=== PATIENT | male | born 1945 | race Caucasian/White ===

== ENCOUNTER 2022-12-10 14:50 | Inpatient (IN) | payer OTHER ==
[~2022-12-10] VITALS: Ht 167.6 cm; Wt 56.3 kg
[2022-12-10 16:43] LABS: BASOPHILS ABSOLUTE AUTO 0.05 K/mm3 (0.00-0.23); BASOPHILS PERCENT AUTO 1 % (0-2); EOSINOPHILS ABSOLUTE AUTO 0.01 K/mm3 (0.00-0.68); EOSINOPHILS PERCENT AUTO 0 % (0-6); Hematocrit 35.6 % (37.0-53.0); Hemoglobin 12.3 g/dL (13.5-17.5); IMMATURE GRAN ABSOLUTE AUTO 0.02 K/mm3 (0.00-0.10); IMMATURE GRAN PERCENT AUTO 0 % (0-1); LYMPHOCYTES PERCENT AUTO 28 % (21-46); MONOCYTES ABSOLUTE AUTO 0.94 K/mm3 (0.16-1.47); MONOCYTES PERCENT AUTO 15 % (4-13); Mean Corpuscular HGB 33.7 pg (26.0-34.0); Mean Corpuscular HGB Conc 34.6 g/dL (31.5-36.5); Mean Corpuscular Volume 98 fL (80-100); Mean Platelet Volume 10.2 fL (9.1-12.4); NEUTROPHILS ABSOLUTE AUTO 3.65 K/mm3 (1.96-9.15); NEUTROPHILS PERCENT AUTO 56 % (41-73); NRBC ABSOLUTE 0.02 K/mm3 (0.00-0.02); NRBC Auto 0.3 /100 WBC (0.0-0.2); Platelet Count 298 K/mm3 (150-400); RDW Coefficient Variation 12.4 % (11.7-14.2); RDW Standard Deviation 44.4 fL (35.1-46.3); Red Blood Cell Count 3.65 M/mm3 (4.30-5.90); White Blood Cell Count 6.47 K/mm3 (4.00-11.30)
[2022-12-10 16:59] LABS: Albumin, Blood 3.8 g/dL (3.4-5.0); Bilirubin, Total 1.6 mg/dL (0.1-1.0); Bun/Creatinine Ratio 36.7 (12.0-20.0); Calcium, Blood 9.9 mg/dL (8.5-10.1); Creatinine, Blood 0.63 mg/dL (0.60-1.20); Globulin, Blood 3.8 g/dL (2.2-4.0); Potassium, Blood 3.2 mmol/L (3.5-5.5); Total Protein, Blood 7.6 g/dL (6.4-8.2)
[2022-12-10] MEDS ORDERED: Aspir 8181 MG PO (22:53)
[2022-12-10 23:59] LABS: Thyroid Stimulating Hormone 0.048 uIU/mL (0.360-4.800)
--- NOTE | 2022-12-11 02:00 | NUR ---
TRANSFER NOTE THIS RN RECEIVED REPORT VIA TELEPHONE FROM MAGED RN FROM THE ED. PATIENT TO ROOM AT 2333. PATIENT ALERT AND ORIENTED X4 BUT OCCASIONALLY APPEARS TO BE CONFUSED ABOUT CARE AND CONVERSATION DESPITE ANSWERING QUESTIONS APPROPRIATELY. CARDIZEM GTT INFUSING AT 10. BP STABLE. AFIB WITH HR 90-100'S AT THIS TIME. PATIENT REPORTS PAIN IN THE MID EPIGASTRIC AREA THAT RADIATES TO CHEST. MEDICATING PER EMAR FOR PAIN. PATIENT DENIES DRINKING ALCOHOL AND REPORTS ONLY OCCASIONALLY HAVING 1 BEER SOCIALLY AND HIS LAST DRINK BEING IN MID OCTOBER. BED ALARM ON. BED IN LOWEST POSITION AND CALL LIGHT WITHIN REACH.
[2022-12-11 02:26] LABS: BASOPHILS ABSOLUTE AUTO 0.04 K/mm3 (0.00-0.23); BASOPHILS PERCENT AUTO 1 % (0-2); EOSINOPHILS ABSOLUTE AUTO 0.04 K/mm3 (0.00-0.68); EOSINOPHILS PERCENT AUTO 1 % (0-6); Hemoglobin 11.6 g/dL (13.5-17.5); IMMATURE GRAN ABSOLUTE AUTO 0.02 K/mm3 (0.00-0.10); IMMATURE GRAN PERCENT AUTO 0 % (0-1); LYMPHOCYTES PERCENT AUTO 33 % (21-46); MONOCYTES ABSOLUTE AUTO 0.99 K/mm3 (0.16-1.47); MONOCYTES PERCENT AUTO 14 % (4-13); Mean Corpuscular HGB Conc 35.2 g/dL (31.5-36.5); Mean Corpuscular Volume 97 fL (80-100); Mean Platelet Volume 9.3 fL (9.1-12.4); NEUTROPHILS ABSOLUTE AUTO 3.57 K/mm3 (1.96-9.15); NEUTROPHILS PERCENT AUTO 51 % (41-73); NRBC ABSOLUTE 0.02 K/mm3 (0.00-0.02); NRBC Auto 0.3 /100 WBC (0.0-0.2); Platelet Count 242 K/mm3 (150-400); RDW Coefficient Variation 12.3 % (11.7-14.2); RDW Standard Deviation 43.8 fL (35.1-46.3); Red Blood Cell Count 3.41 M/mm3 (4.30-5.90); White Blood Cell Count 6.96 K/mm3 (4.00-11.30)
[2022-12-11 02:47] LABS: Alanine Aminotransfer (ALT/SGP 31 U/L (12-78); Albumin, Blood 3.4 g/dL (3.4-5.0); Alk Phos 66 U/L (50-136); Anion Gap 4 mmol/L (6-16); Aspartate Aminotrans (AST/SGOT 28 U/L (12-37); Bilirubin, Total 1.8 mg/dL (0.1-1.0); Blood Urea Nitrogen 21 mg/dL (8-24); Bun/Creatinine Ratio 32.6 (12.0-20.0); CHOL/HDL RATIO 2.1; CO2, Blood 31 mmol/L (21-32); Calcium, Blood 9.4 mg/dL (8.5-10.1); Chloride, Blood 103 mmol/L (98-108); Cholesterol 62 mg/dL (50-200); Creatinine, Blood 0.64 mg/dL (0.60-1.20); Globulin, Blood 3.3 g/dL (2.2-4.0); Glomerular Filtration Rate 99 (60-); Glucose, Blood 134 mg/dL (70-99); HDL Cholesterol 29 mg/dL (>39); LDL/HDL RATIO 0.6; Low Density Lipoprotein Chol 16 mg/dL (0-110); Potassium, Blood 3.8 mmol/L (3.5-5.5); Sodium, Blood 138 mmol/L (136-145); Total Protein, Blood 6.7 g/dL (6.4-8.2); Triglycerides 83 mg/dL (30-160); Very Low Density Lipoprot Chol 16 mg/dL (6-32)
--- NOTE | 2022-12-11 05:15 | NUR ---
SHIFT SUMMARY NO CHANGES TO NEURO SINCE PREVIOUS NOTE. SEE ASSESSMENT. PATIENT CONTINUES TO BE IN AFIB WITH HR 90'S ON DILT GTT OF 5MG/HR. INFUSING NS PER EMAR. BP STABLE. AFEBRILE. SPO2 >92% ON RA. CALLING APPROPRIATELY. NUNAKAUYARMIUT. CONTINUED COMPLAINTS OF ABDOMINAL PAIN; MEDICATING PER EMAR. BED IN LOWEST POSITION AND CALL LIGHT WITHIN REACH. THIS RN WILL CONTINUE TO MONITOR UNTIL SHIFT CHANGE AT 0700.
[2022-12-11 12:46] LABS: BASOPHILS ABSOLUTE AUTO 0.04 K/mm3 (0.00-0.23); BASOPHILS PERCENT AUTO 1 % (0-2); EOSINOPHILS ABSOLUTE AUTO 0.01 K/mm3 (0.00-0.68); EOSINOPHILS PERCENT AUTO 0 % (0-6); Hematocrit 31.6 % (37.0-53.0); Hemoglobin 10.7 g/dL (13.5-17.5); IMMATURE GRAN ABSOLUTE AUTO 0.02 K/mm3 (0.00-0.10); IMMATURE GRAN PERCENT AUTO 0 % (0-1); LYMPHOCYTES ABSOLUTE AUTO 1.54 K/mm3 (0.84-5.20); LYMPHOCYTES PERCENT AUTO 29 % (21-46); MONOCYTES ABSOLUTE AUTO 0.73 K/mm3 (0.16-1.47); MONOCYTES PERCENT AUTO 14 % (4-13); Mean Corpuscular HGB 33.8 pg (26.0-34.0); Mean Corpuscular HGB Conc 33.9 g/dL (31.5-36.5); Mean Corpuscular Volume 100 fL (80-100); Mean Platelet Volume 9.9 fL (9.1-12.4); NEUTROPHILS ABSOLUTE AUTO 2.97 K/mm3 (1.96-9.15); NEUTROPHILS PERCENT AUTO 56 % (41-73); Platelet Count 238 K/mm3 (150-400); RDW Coefficient Variation 12.3 % (11.7-14.2); RDW Standard Deviation 44.5 fL (35.1-46.3); Red Blood Cell Count 3.17 M/mm3 (4.30-5.90); White Blood Cell Count 5.31 K/mm3 (4.00-11.30)
[2022-12-11 13:00] LABS: International Normalized Ratio 1.16; Prothrombin Time Results 12.1 Sec (9.7-11.5)
[2022-12-11 13:05] LABS: Creatinine, Blood 0.61 mg/dL (0.60-1.20); Potassium, Blood 3.9 mmol/L (3.5-5.5)
--- NOTE | 2022-12-11 18:37 | NUR ---
SHIFT SUMMARY; ASSUMED CARE AT 0700, A/A/OX4, TLINGIT & HAIDA. NS INFUSING AT 100ML/HR. NPO PER ORDERS. EVALUATED TODAY BY SURGERY FOR POSSIBLE GALLBLADDER REMOVAL. ICE CHIPS GIVEN PER OK FROM DR. LEMUS. USES URINAL AT BEDSIDE, REPOSITIONS SELF NEEDED. PO CARDIZEM STARTED TODAY, CARDIZEM IV DC'D AT 1400. REMAINS IN AFIB WITH RATE 70-90, DENIES CP OR SOB. ABD SOFT BUT REMAINS TENDER BILATERALLY. WILL CONTINUE TO MONITOR AND TREAT UNTIL CHANGE OF SHIFT.
[2022-12-11 20:06] LABS: Source, Urine Clean Catch
[2022-12-11 20:19] LABS: Appearance, Urine Clear (Clear); Bilirubin, Urine Neg (Neg); Blood, Urine 3+ (Neg); Color, Urine Yellow (P-Yellow); Glucose Qualitative, Urine Neg (Neg); Ketones, Urine Neg (Neg); Leukocyte Esterase, Urine 3+ (Neg); Nitrite, Urine Pos (Neg); Protein, Urine 3+ (Neg); Specific Gravity, Urine 1.015 (1.003-1.022); Urobilinogen, Urine NORM (Normal)
[2022-12-11 20:39] LABS: Amorphous Mod (0-Heavy); Bacteria Mod /hpf; Squamous Epithelial Cells Mod /hpf (Few); White Blood Cells, Urine 0-2 /hpf (0-5)
--- NOTE | 2022-12-12 06:05 | NUR ---
SHIFT SUMMARY ASSUMED CARE OF PT AT 1900. PT IS A/OX4 BUT ODD. LUNG SOUNDS CLEAR. HEART SOUNDS IRREGULAR. PT WAS IN AFLUTTER AND THEN A 2ND DEGREE BLOCK PER TELE. PT USED URINAL DURING THE NIGHT. PT IS A SBA WITH LINES. AT 0400 PT REQUESTED HELP WITH HIS IV AND FOR ICE CHIPS. PT WAS ASSISTED AND THE ELECTRIC WELL LOGGING OPERATOR BROUGHT ICECHIPS BUT SET THEM ON THE TABLE ON THE OTHER SIDE OF THE BED. PT GOT UP TO WALK AROUND THE BED AND FELL DUE TO WEAKNESS, DESPITE BEING TOLD TO CALL FOR ASSISTANCE WHICH HE HAD DONE PREVIOUSLY IN THE SHIFT. PT STATED HE DID NOT HIT HIS HEAD BUT TOOK MOST OF THE FALL WITH HIS L ELBOW WHICH HAS A SMALL SKIN TEAR. VITAL SIGNS STABLE, HOSPITALIST MADE AWARE, BED ALARM ON.
[2022-12-12 11:32] LABS: BASOPHILS ABSOLUTE AUTO 0.04 K/mm3 (0.00-0.23); BASOPHILS PERCENT AUTO 1 % (0-2); EOSINOPHILS ABSOLUTE AUTO 0.02 K/mm3 (0.00-0.68); EOSINOPHILS PERCENT AUTO 0 % (0-6); Hematocrit 33.5 % (37.0-53.0); Hemoglobin 11.6 g/dL (13.5-17.5); IMMATURE GRAN ABSOLUTE AUTO 0.03 K/mm3 (0.00-0.10); IMMATURE GRAN PERCENT AUTO 1 % (0-1); LYMPHOCYTES ABSOLUTE AUTO 1.07 K/mm3 (0.84-5.20); LYMPHOCYTES PERCENT AUTO 19 % (21-46); MONOCYTES ABSOLUTE AUTO 0.58 K/mm3 (0.16-1.47); MONOCYTES PERCENT AUTO 10 % (4-13); Mean Corpuscular HGB 33.5 pg (26.0-34.0); Mean Corpuscular HGB Conc 34.6 g/dL (31.5-36.5); Mean Corpuscular Volume 97 fL (80-100); Mean Platelet Volume 10.1 fL (9.1-12.4); NEUTROPHILS ABSOLUTE AUTO 4.01 K/mm3 (1.96-9.15); NEUTROPHILS PERCENT AUTO 70 % (41-73); Platelet Count 241 K/mm3 (150-400); RDW Coefficient Variation 12.4 % (11.7-14.2); RDW Standard Deviation 43.9 fL (35.1-46.3); Red Blood Cell Count 3.46 M/mm3 (4.30-5.90); White Blood Cell Count 5.75 K/mm3 (4.00-11.30)
[2022-12-12 11:50] LABS: Albumin, Blood 3.3 g/dL (3.4-5.0); Bilirubin, Total 3.1 mg/dL (0.1-1.0); Calcium, Blood 8.8 mg/dL (8.5-10.1); Creatinine, Blood 0.5 mg/dL (0.60-1.20); Globulin, Blood 3.3 g/dL (2.2-4.0); Potassium, Blood 3.5 mmol/L (3.5-5.5); Total Protein, Blood 6.6 g/dL (6.4-8.2)
--- NOTE | 2022-12-12 18:21 | NUR ---
SHIFT SUMMARY; ASSUMED CARE AT 0700. A/A/OX4, FALSE PASS. REPORTS INCREASING ABD PAIN TODAY, BT'S IN ALL QUADS, TENDER IN MID ABDOMEN. SCD'S BILATERALLY, NS INFUSING AT 100ML/HR. AWAITING MRI. NS AT 100ML/HR. CLEAR LIQUID DIET STARTED IN PM BY DR. WEST. PAIN MEDS PER EMAR. HR ST WITH PVC'S RATE 80-100. DENIES SO OR CHEST PAIN. ASSISTED WITH REPOSITIONING SEVERAL TIMES DURING SHIFT. PT STATES HE'S FEELING WEAK AND FELL LAST NOC. WILL CONTINUE TO MONITOR AND TREAT UNTIL CHANGE OF SHIFT.
--- NOTE | 2022-12-12 23:56 | NUR ---
CARE UPDATE PT IN NO APPARENT DISTRESS, CONTINUOUS TELEMETRY, HR 100'S-110'S. PT MEDICATED PER ORDERS. STATES PAIN IS NEARLY COMPLETELY GONE AT THIS TIME. AOX4. DENIES ANY OTHER NEEDS AT THIS TIME. SCDS IN PLACE AND ON. CALL LIGHT WITHIN REACH. PT USING CELL PHONE.
[2022-12-13 04:59] LABS: BASOPHILS ABSOLUTE AUTO 0.05 K/mm3 (0.00-0.23); BASOPHILS PERCENT AUTO 1 % (0-2); EOSINOPHILS ABSOLUTE AUTO 0.09 K/mm3 (0.00-0.68); EOSINOPHILS PERCENT AUTO 1 % (0-6); Hematocrit 32.6 % (37.0-53.0); Hemoglobin 11.4 g/dL (13.5-17.5); IMMATURE GRAN ABSOLUTE AUTO 0.03 K/mm3 (0.00-0.10); IMMATURE GRAN PERCENT AUTO 0 % (0-1); LYMPHOCYTES PERCENT AUTO 24 % (21-46); MONOCYTES PERCENT AUTO 12 % (4-13); Mean Corpuscular HGB 33.8 pg (26.0-34.0); Mean Corpuscular Volume 97 fL (80-100); Mean Platelet Volume 9.9 fL (9.1-12.4); NEUTROPHILS ABSOLUTE AUTO 4.13 K/mm3 (1.96-9.15); NEUTROPHILS PERCENT AUTO 62 % (41-73); Platelet Count 234 K/mm3 (150-400); RDW Coefficient Variation 12.2 % (11.7-14.2); RDW Standard Deviation 43.2 fL (35.1-46.3); Red Blood Cell Count 3.37 M/mm3 (4.30-5.90)
[2022-12-13 06:02] LABS: Albumin/Globulin Ratio 0.9 (0.8-1.8); Bilirubin, Total 2.4 mg/dL (0.1-1.0); Calcium, Blood 8.6 mg/dL (8.5-10.1); Creatinine, Blood 0.48 mg/dL (0.60-1.20); Globulin, Blood 3.3 g/dL (2.2-4.0); Potassium, Blood 2.9 mmol/L (3.5-5.5); Total Protein, Blood 6.3 g/dL (6.4-8.2)
--- NOTE | 2022-12-13 06:06 | NUR ---
SHIFT SUMMARY ASSUMED CARE OF PT AT 1900. PT IS A/OX4. HEART SOUNDS REGULAR, LUNG SOUNDS CLEAR. PT WAS PAINFUL THIS SHIFT. MEDICATED PER EMAR. PT SLEPT MOST OF THE NIGHT. USED THE URINAL. NO ACUTE CHANGES.
--- NOTE | 2022-12-13 06:44 | NUR ---
CALL TO PROVIDER THIS RN CALLS DR CABRERA TO NOTIFY OF POTASSIUM LEVEL 2.9. PROVIDER ORDERS KCL IV 40 MEQ ONE TIME FOR NOW.
[2022-12-13 09:06] LABS: Magnesium, Blood 1.7 mg/dL (1.6-2.4); Phosphorus, Blood 3.6 mg/dL (2.5-4.9)
[2022-12-13 15:48] LABS: Anti-Xa UFH, PHA Monitoring <0.10 IU/mL; International Normalized Ratio 1.27; Prothrombin Time Results 13.1 Sec (9.7-11.5)
[2022-12-13 16:01] LABS: Albumin, Blood 2.9 g/dL (3.4-5.0); Anion Gap 8 mmol/L (6-16); Blood Urea Nitrogen 14 mg/dL (8-24); Bun/Creatinine Ratio 29.5 (12.0-20.0); CO2, Blood 25 mmol/L (21-32); Calcium, Blood 8.5 mg/dL (8.5-10.1); Chloride, Blood 104 mmol/L (98-108); Creatinine, Blood 0.48 mg/dL (0.60-1.20); Glomerular Filtration Rate 108 (60-); Glucose, Blood 217 mg/dL (70-99); Phosphorus, Blood 3.2 mg/dL (2.5-4.9); Potassium, Blood 3.1 mmol/L (3.5-5.5); Sodium, Blood 137 mmol/L (136-145)
--- NOTE | 2022-12-13 17:22 | NUR ---
Received pt at 1710. PT connected to a heparin drip 16.8 uts/per hour. Pt alertxorientedx3 and ambulatory. PT states he's [place] and just received pain medication before coming upstairs. PT is on tele resting comfortanly HR at 90. Pt has water and cell phone at bedside. All belongings with patient at bedside.
[2022-12-14] MEDS ORDERED: Norco 5-325 Ta1 EACH PO (02:06)
[2022-12-14] MEDS ORDERED: ATOR80 PO (02:06)
[2022-12-14] MEDS ORDERED: NALOXONE H0.4 MG/1 M IM (02:07)
[2022-12-14] MEDS ORDERED: CARBOXYMETHYLC1 EACH BOTHEYES (02:08)
[2022-12-14] MEDS ORDERED: THERA-D2000 UNIT PO (02:09)
[2022-12-14] MEDS ORDERED: STIOLTO RESPIMAT4 G1 INH (02:09)
[2022-12-14] MEDS ORDERED: METHIMAZOLE5 M1 PO (02:10)
--- NOTE | 2022-12-14 03:26 | NUR ---
Patient resting in bed at tthis time.
[2022-12-14 06:18] LABS: BASOPHILS ABSOLUTE AUTO 0.05 K/mm3 (0.00-0.23); BASOPHILS PERCENT AUTO 1 % (0-2); EOSINOPHILS ABSOLUTE AUTO 0.09 K/mm3 (0.00-0.68); EOSINOPHILS PERCENT AUTO 1 % (0-6); Hematocrit 31.5 % (37.0-53.0); Hemoglobin 10.8 g/dL (13.5-17.5); IMMATURE GRAN ABSOLUTE AUTO 0.02 K/mm3 (0.00-0.10); IMMATURE GRAN PERCENT AUTO 0 % (0-1); LYMPHOCYTES ABSOLUTE AUTO 1.58 K/mm3 (0.84-5.20); LYMPHOCYTES PERCENT AUTO 22 % (21-46); MONOCYTES ABSOLUTE AUTO 0.79 K/mm3 (0.16-1.47); MONOCYTES PERCENT AUTO 11 % (4-13); Mean Corpuscular HGB 33.6 pg (26.0-34.0); Mean Corpuscular HGB Conc 34.3 g/dL (31.5-36.5); Mean Corpuscular Volume 98 fL (80-100); Mean Platelet Volume 9.7 fL (9.1-12.4); NEUTROPHILS ABSOLUTE AUTO 4.53 K/mm3 (1.96-9.15); NEUTROPHILS PERCENT AUTO 64 % (41-73); Platelet Count 224 K/mm3 (150-400); RDW Coefficient Variation 12.3 % (11.7-14.2); RDW Standard Deviation 44.1 fL (35.1-46.3); Red Blood Cell Count 3.21 M/mm3 (4.30-5.90); White Blood Cell Count 7.06 K/mm3 (4.00-11.30)
[2022-12-14 06:58] LABS: Albumin/Globulin Ratio 0.9 (0.8-1.8); Bilirubin, Total 2.4 mg/dL (0.1-1.0); Bun/Creatinine Ratio 19.3 (12.0-20.0); Creatinine, Blood 0.52 mg/dL (0.60-1.20); Globulin, Blood 3.2 g/dL (2.2-4.0); Magnesium, Blood 1.6 mg/dL (1.6-2.4); Phosphorus, Blood 3.5 mg/dL (2.5-4.9); Potassium, Blood 3.5 mmol/L (3.5-5.5); Total Protein, Blood 6.2 g/dL (6.4-8.2)
--- NOTE | 2022-12-14 09:00 | NUR ---
pt laying in bed, was asking tunneling machine operator this am for pain meds, when this nurse walked in room he states he hasn't asked for pain meds he needs to get up to bedside cammode for a bm, states he is in bad pain in epigastric area, but not time for pain meds yet, lungs are clear dim in bases, resp even and unlabored, no cough noted, on r/a, tele in place running sr per monitor, rate goes to the 150's when he is up, otherwise staying in the 90's, no edema noted, piv x2 and a power glide in place, all clear and patent, btx4, abd flat soft nontender, voids without diff, skin c/w/d, mafeliciano, yazmin, call light in reach.
--- NOTE | 2022-12-14 18:14 | NUR ---
pt was irritable this am but is has been better throughout the day, resting when left uninterupted, no acute changes this shift, call light in reach.
--- NOTE | 2022-12-15 03:50 | NUR ---
EMR IMPLEMENTATION SPECIALIST SUMMARY VSS. NO ACUTE EVENTS THIS SHIFT. PATIENT IS TOLERATING ABO THERAPY AND HEPARIN DRIP. PAIN ASSESSED AND MEDICATED PER EMAR. BED LOW AND LOCKED. CALL LIGHT WITHIN REACH. THIS RN WILL CONTINUE TO MONITOR.
[2022-12-15 06:52] LABS: Hematocrit 28.6 % (37.0-53.0)
[2022-12-15 07:41] LABS: Anti-Xa UFH, PHA Monitoring 0.55 IU/mL; International Normalized Ratio 1.22; Prothrombin Time Results 12.6 Sec (9.7-11.5)
--- NOTE | 2022-12-15 16:53 | NUR ---
EVENING NOTE PT ALERT. HE HAD SHARED THAT HE IS AFRAID OF SUBLIMAZE. HIS PAIN IS RUQ AND LUQ. TENDER TO GENTLY TOUCH. HE SAYS IT'S SHRP AND SHOOTING. VICODEN 1 TAB NOT EFFECTIVE. MANAGED TO ENCOURAGE HIM INTO TRYING SUBLIMAZE X1. THIS NURSE STAYED WITH HIM FOR 15 MINUTES AFTER ADMINISTRATION OF FENTANYL. HE APPRECIATED THE COMFORT. HE DID STATE THAT THE FENTANYL DID "SOFTEN" THE SHARPNESS. TALKED WITH DR WEST ABOUT THE CHARACTER AND LOCATION OF HIS PAIN. BLOOD SUGARS NOT REQUIRING COVERAGE. IV X2 AND POWERGLIDE X1. CONTINUE POC.
--- NOTE | 2022-12-16 04:43 | NUR ---
DOOR FRAME BUILDER SUMMARY VSS. PAIN ASSESSED AND MEDICATED PER EMAR. PATIENT APPEARS UNCOMFORTABLE. HEPARIN INFUSING. ABO THERAPY WELL TOLERATED. NO ACUTE EVENTS THROUGHOUT THE NIGHT. BED LOW AND LOCKED. CALL LIGHT WITHIN REACH. THIS RN WILL CONTINUE TO MONITOR.
[2022-12-16 05:03] LABS: Hematocrit 30.1 % (37.0-53.0); Hemoglobin 10.5 g/dL (13.5-17.5); Mean Platelet Volume 9.9 fL (9.1-12.4); Platelet Count 248 K/mm3 (150-400)
[2022-12-16 05:48] LABS: Albumin, Blood 2.8 g/dL (3.4-5.0); Albumin/Globulin Ratio 0.8 (0.8-1.8); Bilirubin, Total 1.4 mg/dL (0.1-1.0); Calcium, Blood 8.7 mg/dL (8.5-10.1); Creatinine, Blood 0.53 mg/dL (0.60-1.20); Globulin, Blood 3.3 g/dL (2.2-4.0); Potassium, Blood 3.1 mmol/L (3.5-5.5); Total Protein, Blood 6.1 g/dL (6.4-8.2)
--- NOTE | 2022-12-16 12:02 | NUR ---
DR WEST DURING PRE OP INFORMED CONSENT WITH PT. PT GAVE DR WEST VERBAL CONSNT TO CALL HIS SISTER "ANDREW" AFTER SURGERY. CONTINUE POC.
--- NOTE | 2022-12-16 13:26 | NUR ---
PT BROUGHT FROM [facility] TO [facility] VIA [employer]. PAIN 7/10 PERIUMBILICAL. History, Chart, Medications and Allergies reviewed before start of procedure.Pre-Op teaching done. Pt verbalizes understanding.
--- NOTE | 2022-12-16 14:04 | NUR ---
day surgery Pt transfered to day surgery via [facility] at 1240. Accompanied by RN. PT alert and able to transfer to [facility] with SBA. COntinue POC.
--- NOTE | 2022-12-16 16:34 | NUR ---
POST OP RETURN NOTE REPORT RECEIVED AT BEDSIDE FRO PACU. PT AWAKE, ALERT BUT DISORIENTED. REORIENTED. ABD TENDER T/O. BT HYPOACTIVE. RIGHT ABD MARYJANE DRAIN WITH SCANT INSIDE. 3 LAP DRESSINGS CD&I. VSS. BED ALARM ON. CONTINUE POC.
--- NOTE | 2022-12-16 18:28 | NUR ---
POST OP NOTE PT ALERT BUT CONFUSED POST OP. HE DOESN'T FOLLOW DIRECTIONS WELL. HE IS [place]. VSS. HE AWKAEND AND VOIDED IN THE BED. DURING CLEAN UP HE HIT THE BUSINESS AGENT AND TRIED TO PULL HIS hal OUT. ADDED ADDITIONAL TAPE TO THE HAL SITE. HAL HAS MAINTAINED SUCTION. NO FLUID ACCUMULATING IN DRAIN. ABD SOFT, FLAT. 3 LAP SITES CD&I. POST OP VS SO FAR STABLE. HE DID TAKE 2 SPIS OF WATER THEN REFUSED ANYTHING ELSE. BED LOW AND LOCKED. CURTAIN OPEN FOR DIRECT VISILIZATION. CONTINUE POC.
--- NOTE | 2022-12-17 04:00 | NUR ---
INSTRUMENTATION SUPERVISOR SUMMARY NO ACUTE EVENTS THROUGHOUT THE NIGHT. VSS. RR EVEN AND UNLABORED ON RA. PAIN ASSESSED AND MEDICATED PER EMAR. LAPROSCOPIC SITES COVERED. ABDOMEN SOFT. NO DRAINAGE IN MARYJANE DRAIN. BED LOW AND LOCKED. CALL LIGHT WITHIN REACH. THIS RN WILL CONTINUE TO MONITOR.
[2022-12-17 04:59] LABS: BASOPHILS PERCENT AUTO 0 % (0-2); EOSINOPHILS PERCENT AUTO 0 % (0-6); Hematocrit 29.6 % (37.0-53.0); Hemoglobin 10.2 g/dL (13.5-17.5); IMMATURE GRAN ABSOLUTE AUTO 0.01 K/mm3 (0.00-0.10); IMMATURE GRAN PERCENT AUTO 0 % (0-1); LYMPHOCYTES ABSOLUTE AUTO 0.38 K/mm3 (0.84-5.20); LYMPHOCYTES PERCENT AUTO 8 % (21-46); MONOCYTES ABSOLUTE AUTO 0.16 K/mm3 (0.16-1.47); MONOCYTES PERCENT AUTO 3 % (4-13); Mean Corpuscular HGB 33.1 pg (26.0-34.0); Mean Corpuscular HGB Conc 34.5 g/dL (31.5-36.5); Mean Corpuscular Volume 96 fL (80-100); Mean Platelet Volume 10.5 fL (9.1-12.4); NEUTROPHILS ABSOLUTE AUTO 4.24 K/mm3 (1.96-9.15); NEUTROPHILS PERCENT AUTO 89 % (41-73); Platelet Count 258 K/mm3 (150-400); RDW Coefficient Variation 12.7 % (11.7-14.2); RDW Standard Deviation 44.2 fL (35.1-46.3); Red Blood Cell Count 3.08 M/mm3 (4.30-5.90); White Blood Cell Count 4.79 K/mm3 (4.00-11.30)
[2022-12-17 05:34] LABS: Albumin, Blood 2.9 g/dL (3.4-5.0); Anion Gap 9 mmol/L (6-16); Blood Urea Nitrogen 17 mg/dL (8-24); Bun/Creatinine Ratio 31.5 (12.0-20.0); CO2, Blood 25 mmol/L (21-32); Chloride, Blood 104 mmol/L (98-108); Creatinine, Blood 0.54 mg/dL (0.60-1.20); Glomerular Filtration Rate 104 (60-); Glucose, Blood 164 mg/dL (70-99); Magnesium, Blood 1.7 mg/dL (1.6-2.4); Phosphorus, Blood 4.3 mg/dL (2.5-4.9); Potassium, Blood 3.9 mmol/L (3.5-5.5); Sodium, Blood 138 mmol/L (136-145)
--- NOTE | 2022-12-17 18:06 | NUR ---
DAYSHIFT SUMMARY No acute changes to patient status, MD removed drain from RLQ, lap sites, covered w/ dermabond CDI. Bowel tones active/audible. Tolerating clear/full liquids, will advance diet as tolerated. Patient reports mild pain in LLQ and more severe pain in RLQ r/t surgical sites. Hydrocodone given for pain, PRN effective. Patient OOB worked with therapy, SBAx1 with FWW. Heparin IV gtt infusing @ 16.8mL/hr. Vitals stable. Will continue plan of care, awaiting discharge planning.
--- NOTE | 2022-12-18 05:26 | NUR ---
PATIENT COMPLAINED PAIN 7/10 THROUGHOUT SHIFT. MEDICATED PER EMAR
[2022-12-18 05:36] LABS: Albumin, Blood 2.8 g/dL (3.4-5.0); Albumin/Globulin Ratio 0.8 (0.8-1.8); Bilirubin, Total 0.9 mg/dL (0.1-1.0); Calcium, Blood 8.7 mg/dL (8.5-10.1); Creatinine, Blood 0.46 mg/dL (0.60-1.20); Globulin, Blood 3.4 g/dL (2.2-4.0); Total Protein, Blood 6.2 g/dL (6.4-8.2)
--- NOTE | 2022-12-18 19:42 | NUR ---
SHIFT SUMMARY: PT A&O X4, PLEASANT, KIVALINA, AND COMMUNICATES WITH STAFF. PT INFUSING HEPRAIN 16.8ML/HR IN LUE. PT HEPARIN ANTI-XA DRAWN AT 04:52 WITHIN THERAPUTIC LEVELS. PT ABLE TO AMBULATE TO THE BATHROOM 1 PERSON ASSIST WITH FWW AND GAIT BELT. PT RECVIED A BEDBATH AND STATED FEELING BETTER. PT HAD MODERATE PAIN IN LUQ DURING THE SHIFT, PT MEDICATED PER EMAR PROTOCOL. PT MET WITH WASTE DUSTER SEE CM NOTES. PT Q6 CBG CHECKS DC'D AND ON AC/HS CBG CHECKS, ON REGULAR DIET AND TOLERATING WELL. PT PARTICIPATED IN PT, SEE PT NOTES. PT IN BED WITH CALL LIGHT WITHIN REACH.
[2022-12-19 03:24] LABS: BASOPHILS ABSOLUTE AUTO 0.04 K/mm3 (0.00-0.23); BASOPHILS PERCENT AUTO 1 % (0-2); EOSINOPHILS ABSOLUTE AUTO 0.02 K/mm3 (0.00-0.68); EOSINOPHILS PERCENT AUTO 0 % (0-6); Hemoglobin 10.3 g/dL (13.5-17.5); IMMATURE GRAN ABSOLUTE AUTO 0.02 K/mm3 (0.00-0.10); IMMATURE GRAN PERCENT AUTO 0 % (0-1); LYMPHOCYTES PERCENT AUTO 34 % (21-46); MONOCYTES ABSOLUTE AUTO 0.84 K/mm3 (0.16-1.47); MONOCYTES PERCENT AUTO 12 % (4-13); Mean Corpuscular HGB 33.4 pg (26.0-34.0); Mean Corpuscular HGB Conc 34.3 g/dL (31.5-36.5); Mean Corpuscular Volume 97 fL (80-100); NEUTROPHILS ABSOLUTE AUTO 3.65 K/mm3 (1.96-9.15); NEUTROPHILS PERCENT AUTO 53 % (41-73); Platelet Count 280 K/mm3 (150-400); RDW Coefficient Variation 12.8 % (11.7-14.2); RDW Standard Deviation 45.1 fL (35.1-46.3); Red Blood Cell Count 3.08 M/mm3 (4.30-5.90); White Blood Cell Count 6.87 K/mm3 (4.00-11.30)
[2022-12-19 03:46] LABS: Albumin, Blood 2.6 g/dL (3.4-5.0); Albumin/Globulin Ratio 0.7 (0.8-1.8); Bilirubin, Total 0.7 mg/dL (0.1-1.0); Bun/Creatinine Ratio 24.6 (12.0-20.0); Calcium, Blood 8.7 mg/dL (8.5-10.1); Creatinine, Blood 0.61 mg/dL (0.60-1.20); Free Thyroxine 3.49 ng/dL (0.70-1.60); Globulin, Blood 3.6 g/dL (2.2-4.0); Potassium, Blood 3.8 mmol/L (3.5-5.5); Total Protein, Blood 6.2 g/dL (6.4-8.2)
--- NOTE | 2022-12-19 04:12 | NUR ---
PATIENT ALERT AND ORIENTED, AFIB CONTROLLED ON TELE, BEDREST, WALKER W/ STANDBY ASSIST, LEFT FA SALINE LOCKED, JUAN POWERGLIDE WITH HEPARIN AT 15 UNITS/16.8 ML/HR, REGULAR DIET, USES URINAL, PATIENT COMPLAINED OF PAIN 7/10 MEDICATED PER EMAR, PATIENT REFUSES INSULIN, AWAITING SNF PLACEMENT TO [facility]. NO EVENTS OVERNIGHT
[2022-12-19] MEDS ORDERED: ELIQUIS5 M2 PO (11:21)
[2022-12-19] MEDS ORDERED: DILT60ER PO (11:22)
--- NOTE | 2022-12-19 15:31 | NUR ---
SHIFT SUMMARY PT RESTING QUIETLY AT START OF SHIFT. WOKE FOR SHIFT REPORT. IV HEPARIN INFUSING PER EMAR; LATER D/C'D AND CHANGED TO PO ELIQUIS FOR D/C. PT TO D/C TO SNF TODAY, BUT REFUSING TO ALLOW COVID SWAB PROTOCOL. PER SHIFT REPORT, PT REFUSING ALOT OF CARE; PICKING AND CHOOSING WHAT CARE HE WANTS AND WHEN HE WANTS IT. D/C ORDERS PLACED, BUT PT REFUSING TO CO-OP WITH D/C OR PROVIDE PHARMACY FOR MEDICATIONS TO BE FAXED TO [facility]. CLOTH PIECER IN TO TRY TO TALK WITH PT FOR 30 MINS IN ORDER TO PROVIDE SAFE D/C PLAN, W/O SUCCESS. DR LITTLE NOTIFIED AND LATER TO TO TALK WITH PT ABOUT SAFE D/C PLAN, BUT PT REFUSING ALL ASSISTANCE. PT IS VERY IRRITABLE AND RUDE. IV ABX GIVEN PER EMAR. CALL LT IN REACH.
--- NOTE | 2022-12-19 17:54 | NUR ---
SHIFT SUMMARY PT RESTING QUIETLY DURING SHIFT REPORT. WOKE EASILY FOR CARE. PT'S TO RM EARLY WITH QUESTIONS. DR DURON AND DR MORA BOTH IN TO SEE PT AND ANS QUESTIONS UNTIL COMPLETE, DISCUSSING PLAN OF CARE. H&H JUAN'D, DECREASING ONLY SLIGHTLY FROM PREVIOUS; SEE CHART. ANOTHER UNIT OF PRBC'S ORDERED LATER IN THE DAY. PT TOLERATED WELL. PT UP TO BSC THIS EVENING HAVING ANOTHER VERY LRG BM. DR DURON NOTIFIED FOR OCCULT STOOL SAMPLE; OBTAINED AND SENT. PT REMAINS SITTING IN CHAIR AT BS WATCHING TV. REPORTS FEELING BETTER AFTER UNIT OF BLOOD. ABLE TO BREATHE EASIER WELL. DENIES FURTHER NEEDS AT THIS TIME. CALL LT IN REACH.
--- NOTE | 2022-12-19 18:15 | NUR ---
BINDER AND BOX BUILDER BACK IN TO TALK WITH PT AND DISCUSS PLAN OF CARE. PT TO D/C TO HOME AND GO TO [facility] TOMORROW. MEDS FAXED TO [facility] PER PT REQUEST [facility]. PT ASSISTED OUT TO [facility], VIA W/C BY [facility], PER PT REQUEST. 4 WHEEL WALKER DELIVERED BY [facility], PRIOR TO D/C. PT TOOK WALKER AND ALL BELONGINGS WITH HIM.
== END 2022-12-19 17:41 | disposition home or self-care (01) | DRG 418 ==
LOC: ER 14:50 → PCU 23:01 → MEDS 23:01 → PCU 23:41 → MEDS 12-13 17:08
PROVIDERS: Emergency Medicine; Family Medicine; Internal Medicine; Student in an Organized Health Care Education/Training Program; Surgery; ADMIT Internal Medicine
PROC: 0W9G40Z Drainage of Peritoneal Cavity with Drainage Device, Percutaneous Endoscopic Approach (ICD-10-PCS; 2022-12-16)
PROC: BF13YZZ Fluoroscopy of Gallbladder and Bile Ducts using Other Contrast (ICD-10-PCS; 2022-12-16)
PROC: 0FB23ZX Excision of Left Lobe Liver, Percutaneous Approach, Diagnostic (ICD-10-PCS; 2022-12-16)
PROC: 0FT44ZZ Resection of Gallbladder, Percutaneous Endoscopic Approach (ICD-10-PCS; principal; 2022-12-16 13:30)
DX: K85.10 Biliary acute pancreatitis without necrosis or infection (principal); K81.0 Acute cholecystitis; R65.10 Systemic inflammatory response syndrome (SIRS) of non-infectious origin without acute organ dysfunction; I48.91 Unspecified atrial fibrillation; J44.9 Chronic obstructive pulmonary disease, unspecified; E05.00 Thyrotoxicosis with diffuse goiter without thyrotoxic crisis or storm; I10 Essential (primary) hypertension; K76.9 Liver disease, unspecified; R74.01 Elevation of levels of liver transaminase levels; K83.8 Other specified diseases of biliary tract; R74.8 Abnormal levels of other serum enzymes; E78.00 Pure hypercholesterolemia, unspecified; H53.2 Diplopia; R26.9 Unspecified abnormalities of gait and mobility; I25.10 Atherosclerotic heart disease of native coronary artery without angina pectoris; E87.6 Hypokalemia; E05.90 Thyrotoxicosis, unspecified without thyrotoxic crisis or storm; E11.65 Type 2 diabetes mellitus with hyperglycemia; Z95.5 Presence of coronary angioplasty implant and graft; I25.2 Old myocardial infarction; Z88.8 Allergy status to other drugs, medicaments and biological substances; Z87.891 Personal history of nicotine dependence; Z79.82 Long term (current) use of aspirin; Z98.890 Other specified postprocedural states
CPT/HCPCS: 36415; 71045; 74177; 74300; 76705; 76770; 80048; 80053; 80061; 80069; 81001; 82947; 83036; 83520; 83605; 83690; 83735; 83880; 84100; 84439; 84443; 84484; 85014; 85018; 85025; 85049; 85520; 85610; 85730; 87040; 87086; 88304; 88307; 88312; 93005; 93010; 93306; 94640; 94664; 94760; 94762; 96365; 96366; 96375; 97110; 97116; 97162; 97530; 99285-25; A9270; C1751; C1894; J0694; J1100; J1644; J2370; J2405; J2704; J2795; J3010; J3480; J7030; J7050; J7120; Q9967